=== PATIENT | male | born 1965 | race Caucasian/White ===

== ENCOUNTER 2021-09-14 18:46 | Inpatient (IN) | payer OTHER, SELFPAY ==
[~2021-09-14 18:46] MED LIST: Iopamidol-370 76% 500 ML 1 ML ONE
[2021-09-14 19:36] LABS: #Lymphocytes 1.2 thou/uL (1.20-3.40); #Monocytes 0.6 thou/uL (0.11-0.59); #Neutrophils 10.8 thou/uL (1.40-6.50); %Basophils 0.3 % (0.0-1.0); %Eosinophils 0.2 % (0.0-10.0); %Lymphocytes 9.4 % (21.0-51.0); %Monocytes 4.9 % (0.0-10.0); %Neutrophils 85.3 % (42.0-75.0); Hemoglobin 10.7 g/dL (14.0-18.0); Mean Corpuscular HGB CONC 33.8 g/dL (32.0-36.0); Mean Corpuscular Hemoglobin 32.1 pg (27.0-31.0); Mean Platelet Volume 8.6 fL (7.4-10.4); Platelet Count 276 thou/uL (130-400); RBC Distribution Width 11.4 % (11.5-14.5); Red Blood Cell (RBC) Count 3.34 mill/uL (4.70-6.10); White Blood Cell (WBC) Count 12.7 thou/uL (4.8-10.8)
[2021-09-14 19:49] LABS: Prothrombin Time 13.6 sec (12.0-14.7)
[2021-09-14 19:50] LABS: PTT 26.9 sec (22.9-36.1)
[2021-09-14 19:54] LABS: ALT (SGPT) 17 U/L (8-55); AST (SGOT) 13 U/L (5-34); Albumin 3.4 g/dL (3.5-5.0); Alkaline Phosphatase 61 U/L (40-110); Anion Gap 14 mmol/L (10-20); BUN (Urea Nitrogen) 16 mg/dL (8.4-25.7); Bilirubin, Total 0.2 mg/dL (0.2-1.2); Calc. Creatinine Clearance 0 mL/min (70-130); Calcium 8.1 mg/dL (7.8-10.44); Carbon Dioxide 22 mmol/L (22-29); Chloride 106 mmol/L (98-107); Estimated GFR 103; Globulin 2.7 g/dL (2.4-3.5); Glucose 166 mg/dL (70-105); Lipase 14 U/L (8-78); Magnesium 1.8 mg/dL (1.6-2.6); Protein, Total 6.1 g/dL (6.0-8.3); Sodium 138 mmol/L (136-145)
[2021-09-14 20:37] LABS: SARS-CoV-2 NAA Rapid Test DETECTED (NotDetected)
[2021-09-14 21:36] LABS: Hemoglobin 9.9 g/dL (14.0-18.0)
[2021-09-14 21:53] LABS: Bilirubin Negative (Negative); Blood, Urine Negative (Negative); Clarity Clear (Clear); Glucose, Urine (Dipstick) Normal (Negative); Ketone, Urine Negative (Negative); Leukocyte Negative Leu/uL (Negative); Nitrite Negative (Negative); Protein, Urine (Dipstick) 10 mg/dL (Neg-Trace); Urobilinogen Normal mg/dL (Less than 2)
[2021-09-14] MEDS ORDERED: Pantoprazole 40 MG VIAL ONE (22:14)
[2021-09-15] MEDS ORDERED: Senokot S 8.6-50 MG TAB PO PRN (00:05)
[2021-09-15] MEDS ORDERED: Acetaminophen 325 MG TAB PO PRN (00:05)
[2021-09-15] MEDS ORDERED: Loperamide HCl 2 MG CAP PO PRN (00:05)
[2021-09-15] MEDS ORDERED: HYDROcodone/Acetaminophen 5/325 mg Tablet PO PRN (00:05)
[2021-09-15 05:40] VITALS: BMI 29.1
[2021-09-15 06:49] LABS: Anion Gap 13 mmol/L (10-20); BUN (Urea Nitrogen) 12 mg/dL (8.4-25.7); Calc. Creatinine Clearance 167 mL/min (70-130); Calcium 8.3 mg/dL (7.8-10.44); Carbon Dioxide 23 mmol/L (22-29); Chloride 106 mmol/L (98-107); Estimated GFR 105; Glucose 114 mg/dL (70-105); Potassium 3.9 mmol/L (3.5-5.1); Sodium 138 mmol/L (136-145)
[2021-09-15 07:10] LABS: #Eosinphils 0.1 thou/uL (0.0-0.7); #Lymphocytes 2.2 thou/uL (1.20-3.40); #Monocytes 0.8 thou/uL (0.11-0.59); #Neutrophils 9.6 thou/uL (1.40-6.50); %Basophils 0.1 % (0.0-1.0); %Eosinophils 0.4 % (0.0-10.0); %Lymphocytes 17.1 % (21.0-51.0); %Monocytes 6.1 % (0.0-10.0); %Neutrophils 76.3 % (42.0-75.0); Hemoglobin 9.1 g/dL (14.0-18.0); Mean Corpuscular HGB CONC 33.2 g/dL (32.0-36.0); Mean Corpuscular Hemoglobin 31.5 pg (27.0-31.0); Mean Corpuscular Volume 94.9 fL (78.0-98.0); Mean Platelet Volume 9.3 fL (7.4-10.4); Platelet Count 258 thou/uL (130-400); RBC Distribution Width 11.6 % (11.5-14.5); Red Blood Cell (RBC) Count 2.88 mill/uL (4.70-6.10); White Blood Cell (WBC) Count 12.6 thou/uL (4.8-10.8)
[2021-09-15] MEDS ORDERED: Dextrose 5 %-0.45 % NaCl 1,000 ML IV SCH (07:45)
[2021-09-15 09:09] LABS: Iron 113 ug/dL (65-175); Iron Binding Capacity, Total 326 mcg/dL (261-462)
[2021-09-15] MEDS ORDERED: Sodium Chloride 0.9% 500 ML IV SCH (19:00)
[2021-09-16 05:40] LABS: #Basophils 0.1 thou/uL (0.0-0.2); #Eosinphils 0.1 thou/uL (0.0-0.7); #Monocytes 0.7 thou/uL (0.11-0.59); #Neutrophils 5.8 thou/uL (1.40-6.50); %Basophils 0.6 % (0.0-1.0); %Eosinophils 1.5 % (0.0-10.0); %Lymphocytes 31.2 % (21.0-51.0); %Neutrophils 59.8 % (42.0-75.0); Hemoglobin 9.2 g/dL (14.0-18.0); Mean Corpuscular HGB CONC 33.5 g/dL (32.0-36.0); Mean Corpuscular Hemoglobin 32.2 pg (27.0-31.0); Mean Corpuscular Volume 96.2 fL (78.0-98.0); Mean Platelet Volume 8.6 fL (7.4-10.4); Platelet Count 262 thou/uL (130-400); RBC Distribution Width 11.5 % (11.5-14.5); Red Blood Cell (RBC) Count 2.84 mill/uL (4.70-6.10); White Blood Cell (WBC) Count 9.7 thou/uL (4.8-10.8)
[2021-09-16] MEDS: Lactated Ringer's 1,000 ML IV SCH ×2 (09:38→23:44)
[2021-09-16] MEDS ORDERED: GoLYTELY 4,000 ml Bottle PO SCH (10:00)
[2021-09-16 12:02] LABS: Hemoglobin 8.9 g/dL (14.0-18.0); Platelet Count 283 thou/uL (130-400)
[2021-09-16] MEDS ORDERED: HYDROmorphone 2 MG/ML VIAL ONE (18:59)
[2021-09-16] MEDS ORDERED: PHENYLEPHRINE-NS 100 MCG/ML 10 ML SYRINGE ONE (19:00)
[2021-09-16] MEDS ORDERED: PROPOFOL 200 MG/20 ML VIAL ONE (19:00)
[2021-09-16] MEDS ORDERED: Lidocaine 1% PF 5 ML VIAL ONE (19:00)
[2021-09-16] MEDS ORDERED: Midazolam HCl 2 mg/2 ml Vial ONE (19:08)
[2021-09-16] MEDS ORDERED: Ondansetron HCl/PF 4 MG/2 ML Vial IVP PRN (20:04)
[2021-09-16] MEDS ORDERED: HYDROmorphone 2 MG/ML VIAL SLOW IVP PRN (20:04)
[2021-09-16] MEDS ORDERED: Promethazine HCl 25 MG/ML VIAL IM PRN (20:04)
[2021-09-16] MEDS ORDERED: Meperidine HCl/PF 25 MG/ML VIAL SLOW IVP PRN (20:04)
[2021-09-16] MEDS ORDERED: Promethazine HCl 25 MG/ML VIAL IVPB PRN (20:04)
[2021-09-17 00:20] LABS: Hemoglobin 8.3 g/dL (14.0-18.0)
[2021-09-17 05:59] LABS: #Eosinphils 0.1 thou/uL (0.0-0.7); Mean Corpuscular Hemoglobin 31.3 pg (27.0-31.0)
[2021-09-17 06:17] LABS: #Lymphocytes 2.4 thou/uL (1.20-3.40); #Monocytes 0.9 thou/uL (0.11-0.59); #Neutrophils 10.4 thou/uL (1.40-6.50); %Basophils 0.1 % (0.0-1.0); %Eosinophils 0.6 % (0.0-10.0); %Lymphocytes 17.5 % (21.0-51.0); %Monocytes 6.3 % (0.0-10.0); %Neutrophils 75.5 % (42.0-75.0); Hemoglobin 7.2 g/dL (14.0-18.0); Mean Corpuscular HGB CONC 33.9 g/dL (32.0-36.0); Mean Corpuscular Volume 92.3 fL (78.0-98.0); Mean Platelet Volume 8.6 fL (7.4-10.4); Platelet Count 257 thou/uL (130-400); Red Blood Cell (RBC) Count 2.31 mill/uL (4.70-6.10); White Blood Cell (WBC) Count 13.7 thou/uL (4.8-10.8)
[2021-09-17 10:12] LABS: Hemoglobin 7.6 g/dL (14.0-18.0); Platelet Count 293 thou/uL (130-400)
[2021-09-17] MEDS: Lactated Ringer's 1,000 ML IV SCH (14:42)
[2021-09-17 17:29] LABS: Hemoglobin 8.2 g/dL (14.0-18.0)
[2021-09-17 21:21] LABS: Hemoglobin 8.3 g/dL (14.0-18.0)
[2021-09-18 02:09] LABS: Hemoglobin 7.4 g/dL (14.0-18.0)
[2021-09-18 02:10] LABS: #Eosinphils 0.1 thou/uL (0.0-0.7); #Lymphocytes 2.4 thou/uL (1.20-3.40); #Monocytes 0.9 thou/uL (0.11-0.59); #Neutrophils 8.6 thou/uL (1.40-6.50); %Basophils 0.3 % (0.0-1.0); %Eosinophils 0.7 % (0.0-10.0); %Lymphocytes 19.7 % (21.0-51.0); %Monocytes 7.6 % (0.0-10.0); %Neutrophils 71.7 % (42.0-75.0); Hemoglobin 7.4 g/dL (14.0-18.0); Mean Corpuscular HGB CONC 34.3 g/dL (32.0-36.0); Mean Corpuscular Hemoglobin 31.8 pg (27.0-31.0); Mean Corpuscular Volume 92.8 fL (78.0-98.0); Mean Platelet Volume 7.9 fL (7.4-10.4); Platelet Count 271 thou/uL (130-400); RBC Distribution Width 13.5 % (11.5-14.5); Red Blood Cell (RBC) Count 2.33 mill/uL (4.70-6.10)
[2021-09-18] MEDS: Lactated Ringer's 1,000 ML IV SCH (03:05)
[2021-09-18] MEDS ORDERED: Iopamidol-370 76% 500 ML 1 ML ONE (14:30)
[2021-09-18 15:28] LABS: Hemoglobin 8.3 g/dL (14.0-18.0)
[2021-09-18] MEDS: Sodium Chloride 0.9% 1,000 ML IV SCH (15:42)
[2021-09-18 23:00] LABS: Hemoglobin 7.7 g/dL (14.0-18.0)
[2021-09-19] MEDS: Sodium Chloride 0.9% 1,000 ML IV SCH ×3 (03:08→17:28)
[2021-09-19 07:53] LABS: Hemoglobin 7.5 g/dL (14.0-18.0)
[2021-09-19 14:51] LABS: Hemoglobin 7.6 g/dL (14.0-18.0)
[2021-09-19 23:10] LABS: Hemoglobin 7.9 g/dL (14.0-18.0)
[2021-09-20] MEDS: Sodium Chloride 0.9% 1,000 ML IV SCH (04:24)
[2021-09-20 08:00] LABS: Hemoglobin 7.8 g/dL (14.0-18.0)
[2021-09-20 08:10] LABS: Anion Gap 13 mmol/L (10-20); BUN (Urea Nitrogen) 9 mg/dL (8.4-25.7); Calc. Creatinine Clearance 167 mL/min (70-130); Calcium 8.4 mg/dL (7.8-10.44); Carbon Dioxide 25 mmol/L (22-29); Chloride 103 mmol/L (98-107); Estimated GFR 105; Glucose 105 mg/dL (70-105); Potassium 3.1 mmol/L (3.5-5.1); Sodium 138 mmol/L (136-145)
[2021-09-20] MEDS ORDERED: Iron, Sodium Ferric Gluconate 250 MG in Sodium Chloride 0.9% 250 ML 250 ML IVPB SCH (08:30)
[2021-09-20] MEDS: Potassium Chloride 20 MEQ TAB PO SCH ×2 (08:55→14:29)
[2021-09-20 12:33] VITALS: BP 130/84; TEMP 98.3
== END 2021-09-20 15:20 | disposition home or self-care (01) | DRG 377 ==
LOC: ERS 18:46 → ERHOLD 22:30 → OBSVTOIN 22:30 → SURG A 09-15 00:51
PROVIDERS: ADMIT Internal Medicine; ATTEND Internal Medicine
PROC: 30233N1 Transfusion of Nonautologous Red Blood Cells into Peripheral Vein, Percutaneous Approach (ICD-10-PCS; principal; 2021-09-16)
PROC: 3E1H88Z Irrigation of Lower GI using Irrigating Substance, Via Natural or Artificial Opening Endoscopic (ICD-10-PCS; 2021-09-16)
PROC: 0DJ08ZZ Inspection of Upper Intestinal Tract, Via Natural or Artificial Opening Endoscopic (ICD-10-PCS; 2021-09-16)
DX: K57.31 Diverticulosis of large intestine without perforation or abscess with bleeding (principal); U07.1 COVID-19; J12.82 Pneumonia due to coronavirus disease 2019; D62 Acute posthemorrhagic anemia; K63.3 Ulcer of intestine; F32.A Depression, unspecified
CPT/HCPCS: 36415; 36416; 36430; 74174; 74177; 80048; 80053; 81003; 82274; 82728; 83540; 83550; 83690; 83735; 85014; 85018; 85025; 85610; 85730; 86850; 86900; 86901; 93005; 96361; 96374; C9113; J1170; J2250; J2704; J2916; J7050; J7120; P9016; Q9967; U0002

== ENCOUNTER 2021-09-21 07:04 | Inpatient (IN) | payer SELFPAY ==
[2021-09-21 07:44] LABS: #Eosinphils 0.1 thou/uL (0.0-0.7); #Monocytes 0.7 thou/uL (0.11-0.59); %Basophils 0.4 % (0.0-1.0); %Eosinophils 1.3 % (0.0-10.0); %Lymphocytes 17.9 % (21.0-51.0); %Monocytes 6.4 % (0.0-10.0); Hemoglobin 7.5 g/dL (14.0-18.0); Mean Corpuscular Hemoglobin 31.7 pg (27.0-31.0); Mean Corpuscular Volume 96.1 fL (78.0-98.0); Mean Platelet Volume 7.6 fL (7.4-10.4); Platelet Count 398 thou/uL (130-400); RBC Distribution Width 14.7 % (11.5-14.5); Red Blood Cell (RBC) Count 2.35 mill/uL (4.70-6.10); White Blood Cell (WBC) Count 10.9 thou/uL (4.8-10.8)
[2021-09-21 08:00] LABS: INR-International Normal Ratio 1.1; PTT 29.7 sec (22.9-36.1); Prothrombin Time 14.6 sec (12.0-14.7)
[2021-09-21 08:06] LABS: ALT (SGPT) 15 U/L (8-55); AST (SGOT) 17 U/L (5-34); Albumin 3.3 g/dL (3.5-5.0); Alkaline Phosphatase 50 U/L (40-110); Anion Gap 12 mmol/L (10-20); BUN (Urea Nitrogen) 13 mg/dL (8.4-25.7); Bilirubin, Total 0.3 mg/dL (0.2-1.2); Calc. Creatinine Clearance 0 mL/min (70-130); Calcium 8.1 mg/dL (7.8-10.44); Carbon Dioxide 24 mmol/L (22-29); Chloride 108 mmol/L (98-107); Estimated GFR 101; Globulin 2.4 g/dL (2.4-3.5); Glucose 113 mg/dL (70-105); Potassium 3.5 mmol/L (3.5-5.1); Protein, Total 5.7 g/dL (6.0-8.3); Sodium 140 mmol/L (136-145)
[2021-09-21] MEDS ORDERED: Bisacodyl 5 MG TAB PO PRN (12:18)
[2021-09-21] MEDS ORDERED: Ondansetron ODT 4 MG TAB PO PRN (12:18)
[2021-09-21] MEDS ORDERED: Acetaminophen 325 MG TAB PO PRN (12:18)
[2021-09-21] MEDS ORDERED: Ondansetron PF 4 MG/2 ML Vial IVP PRN (12:18)
[2021-09-21] MEDS ORDERED: Senokot S 8.6-50 MG TAB PO PRN (12:18)
[2021-09-21 13:14] VITALS: BMI 27.1
[2021-09-21 19:29] LABS: Hemoglobin 7.9 g/dL (14.0-18.0); Platelet Count 407 thou/uL (130-400)
[2021-09-21] MEDS ORDERED: Pantoprazole 40 MG VIAL IVP SCH (21:00)
[2021-09-22 05:50] LABS: #Eosinphils 0.3 thou/uL (0.0-0.7); #Lymphocytes 2.8 thou/uL (1.20-3.40); #Monocytes 0.7 thou/uL (0.11-0.59); #Neutrophils 7.3 thou/uL (1.40-6.50); %Basophils 0.4 % (0.0-1.0); %Eosinophils 2.4 % (0.0-10.0); %Monocytes 6.7 % (0.0-10.0); %Neutrophils 65.6 % (42.0-75.0); Hemoglobin 7.8 g/dL (14.0-18.0); Mean Corpuscular HGB CONC 32.5 g/dL (32.0-36.0); Mean Corpuscular Hemoglobin 31.1 pg (27.0-31.0); Mean Corpuscular Volume 95.9 fL (78.0-98.0); Mean Platelet Volume 7.7 fL (7.4-10.4); Platelet Count 425 thou/uL (130-400); RBC Distribution Width 14.8 % (11.5-14.5); Red Blood Cell (RBC) Count 2.49 mill/uL (4.70-6.10); White Blood Cell (WBC) Count 11.1 thou/uL (4.8-10.8)
[2021-09-22 06:10] LABS: ALT (SGPT) 15 U/L (8-55); AST (SGOT) 21 U/L (5-34); Albumin 3.6 g/dL (3.5-5.0); Alkaline Phosphatase 54 U/L (40-110); Anion Gap 12 mmol/L (10-20); BUN (Urea Nitrogen) 13 mg/dL (8.4-25.7); Bilirubin, Total 0.4 mg/dL (0.2-1.2); Calc. Creatinine Clearance 144 mL/min (70-130); Calcium 8.7 mg/dL (7.8-10.44); Carbon Dioxide 27 mmol/L (22-29); Chloride 106 mmol/L (98-107); Estimated GFR 103; Globulin 2.7 g/dL (2.4-3.5); Glucose 102 mg/dL (70-105); Potassium 3.7 mmol/L (3.5-5.1); Protein, Total 6.3 g/dL (6.0-8.3); Sodium 141 mmol/L (136-145)
[2021-09-22] MEDS: Ferrous Sulfate 325 MG TAB PO SCH (08:02)
[2021-09-23] MEDS: Ferrous Sulfate 325 MG TAB PO SCH (08:22)
[2021-09-23 08:24] VITALS: BP 121/78; TEMP 98
== END 2021-09-23 11:30 | disposition home or self-care (01) | DRG 378 ==
LOC: ERS 07:04 → T4-A 11:30
PROVIDERS: ADMIT Internal Medicine; ATTEND Internal Medicine
PROC: 30233N1 Transfusion of Nonautologous Red Blood Cells into Peripheral Vein, Percutaneous Approach (ICD-10-PCS; principal; 2021-09-22)
DX: K57.31 Diverticulosis of large intestine without perforation or abscess with bleeding (principal); D62 Acute posthemorrhagic anemia; F32.A Depression, unspecified; F12.10 Cannabis abuse, uncomplicated
CPT/HCPCS: 36415; 36430; 80053; 85025; 85610; 85730; 86850; 86900; 86901; 99284; P9016